=== PATIENT | female | born 1980 | race American Indian/Alaskan Native ===

== ENCOUNTER 2017-04-04 22:43 | Emergency (ER) | payer MEDICAID, OTHER ==
[2017-04-04 23:30] VITALS: BP 147/100
== END 2017-04-05 02:16 | disposition left against medical advice (07) ==
LOC: ED 22:43
DX: K08.89 Other specified disorders of teeth and supporting structures (principal); R51 Headache; Z53.21 Procedure and treatment not carried out due to patient leaving prior to being seen by health care provider

== ENCOUNTER 2020-05-03 01:49 | Emergency (ER) | payer MEDICAID | END 2020-05-03 06:46 | disposition left against medical advice (07) | LOC: ED 01:49 | DX: J02.9 Acute pharyngitis, unspecified (principal); Z53.21 Procedure and treatment not carried out due to patient leaving prior to being seen by health care provider | CPT/HCPCS: 93005 ==